=== PATIENT | female | born 1975 | race Caucasian/White ===

== ENCOUNTER 2021-04-22 06:47 | Emergency (ER) | payer MEDICAID, SELFPAY ==
[2021-04-22 06:49] VITALS: BP 155/87; BP 156/99; PULSE 105; PULSE 85; RESP 15; RESP 17; TEMP 37; O2SAT 96; O2SAT 97; BMI 36.8
[2021-04-22 06:53] VITALS: BP 156/99; PULSE 87; RESP 17; TEMP 37; O2SAT 95
--- NOTE | 2021-04-22 07:09 | RAD_ITS ---
STUDY: X-RAY CHEST REASON FOR EXAM: Female, 45 years old. cough TECHNIQUE: Single AP portable view of the chest. COMPARISON: None. FINDINGS: The lungs are clear and expanded. There is no demonstrated pleural abnormality. Normal size heart. Normal mediastinum and kenyatta. Normal visualized pulmonary arteries. Normal visualized aortic arch and descending thoracic aorta. Normal visualized thoracic spine. Normal visualized ribs, clavicles, and shoulders. There is no demonstrated abnormality of the visualized soft tissue structures of the upper abdomen. RAD/Chest 1 View IMPRESSION: Normal x-ray examination of the chest. Electronically Signed: Ld Ruiz MD at 7:43 EDT Tel , Service support ,
--- NOTE | 2021-04-22 07:09 | EX.ED.DYSGE1 ---
HPI History of Present Illness Chief Complaint: General Illness Detail of Chief Complaint: Cough and concern for pneumonia Informant: patient Narrative Narrative: Patient presents to the emergency department complaint of sinus congestion as well as cough that started 4 days ago. Patient was seen few days ago by her primary care physician and had a strep screen and Covid test that were negative. Patient started on Zithromax. Patient complaining of pain in her chest with coughing. She has had subjective fever at home. Patient states that her granddaughter recently had parainfluenza virus. Patient denies recent travel. She has no medical history otherwise. Patient states she is having hard time sleeping at night because of all the coughing and the pain in her chest with coughing. Patient is concerned she might have pneumonia. Prior similar symptoms: No Recent Illness/Hospitalization: No PFSH PFSH Home Medications Mucinex 04/22/21 [History Last Taken Unknown] albuterol sulfate 2 puff INHALATION 4X/DAY 04/22/21 [History Last Taken Unknown] azithromycin 04/22/21 [History Last Taken Unknown] benzonatate [Tessalon Perles] 100 mg PO BID PRN #14 cap 04/22/21 [Rx Last Taken Unknown] pseudoephedrine HCl [Sudafed] 30 mg Q12H PRN PRN 04/22/21 [History Last Taken Unknown] Allergy/AdvReac Type Severity Reaction Status Date / Time fluoxetine [From Prozac] Allergy Swelling Verified 04/22/21 06:57 omeprazole [From Prilosec] Allergy Swelling Verified 04/22/21 06:56 prednisone Allergy Itching Verified 04/22/21 06:56 acetaminophen [From Percocet] AdvReac Nausea Verified 04/22/21 06:56 oxycodone [From Percocet] AdvReac Nausea Verified 04/22/21 06:56 Social History Smoking Status: Never smoker ROS [facility] ED Constitutional Constitutional ED: Reports systems reviewed and no addt'l complaints, except as documented; Denies body ache(s), change in weight or chills Eyes Eyes: Denies acute decrease in peripheral vision, change in vision, double vision or loss of vision ENT ENT ED: Reports none, ear pain and sore throat; Denies lip swelling, loss taste/smell, neck pain or otalgia Cardiovascular Cardiovascular: Reports none; Denies abdominal pain, chest pain with activity, leg edema, lightheadedness, palpitations, rapid heart rate or syncope Respiratory/Chest Respiratory/Chest: Reports none, cough and sputum; Denies change in mental status, dry cough, dyspnea, hemoptysis, shortness of breath at rest or shortness of breath with exertion Gastrointestinal Gastrointestinal: Reports none; Denies abdominal pain, change in stool character, diarrhea, hematemesis, hematochezia, melena, rectal bleeding or vomiting Genitourinary Genitourinary ED: Reports none; Denies abdominal discomfort, anuria, dysuria, genital pain or polyuria Musculoskeletal Musculoskeletal: Reports none; Denies arthralgias, back pain, difficulty walking, extremity pain, muscle weakness or myalgias Integumentary Reports none; Denies abscess or rash Neurologic Neurologic: Reports none; Denies abnormal gait, confusion, focal weakness, frequent falls, headache(s), loss of vision, numbness, paresthesias, radicular pain, vertigo or weakness Psychiatric Psychiatric: Reports systems reviewed and no addt'l complaints, except as documented and none; Denies behavioral changes, confusion, difficulty concentrating, hallucinations, suicidal ideation, tactile hallucinations or visual hallucinations Endocrine Endocrinology: Denies none, cold intolerance, excessive sweating, fatigue or heat intolerance Hematologic/Lymphatic Hematologic/Lymphatic: Reports none; Denies anemia, easy bleeding or easy bruising Allergic/Immunologic Allergic/Immunologic ED: Denies as per HPI, none, lip swelling, mouth swelling, throat swelling, tongue swelling or hives EXAM Physical Exam Const Vital Signs: 04/22/21 06:49 04/22/21 06:53 04/22/21 07:02 Temperature 98.6 F 98.6 F Temperature Source Oral Oral Pulse Rate 85 87 Respiratory Rate 15 17 Respiratory Pattern Normal Blood Pressure 156/99 H 156/99 H Blood Pressure Mean 118 118 Pulse Ox 97 95 Oxygen Delivery Method Room Air Room Air Positive well nourished and well developed General Appearance ED: well developed and NAD HEENT Reports TM's clear and moist mucous membranes normocephalic and atraumatic; Negative for trauma or tenderness Tympanic Membrane ED: Yes TM's clear Eyes PERRL and EOMs intact bilaterally General Eye ED: Negative for pale conjunctiva or scleral icterus Neck no lymphadenopathy, supple and no JVD General: Negative for tenderness Chest Wall inspection of chest normal and palpation of chest normal Chest: Negative for tenderness Resp normal respiratory effort and clear to auscultation bilaterally Effort and Inspection: Negative for respiratory distress or pain with movement Auscultation: Negative for rhonchi, wheezes or diminished lung sounds Cardio regular rate, regular rhythm, S1 normal heart sound, S2 normal heart sound and no murmurs Peripheral Pulses: pulses 2+ throughout GI normal to inspection, nondistended, normoactive bowel sounds, soft to palpation, non-tender, non-distended and no masses Back/Spine no CVA tenderness and no thoracic nor lumbar tenderness Extremity normal to inspection General Extremety ED: Negative for edema General Extremity: Negative for edema Neuro oriented x3, CN's II-XII intact bilaterally, no sensory deficits noted and gait normal Sensorium / Orientation: awake, alert, oriented to person, oriented to place and oriented to time Motor Exam: strength 5/5 throughout and strength abnormal Psych mental status grossly normal Skin no rashes or lesions noted and no wounds MDM MDM MDM Narrative Medical decision making narrative: Patient had negative Covid exam 2 days ago. Chest x-ray was unremarkable today. Patient looks well and vital signs essentially unremarkable. Feel patient has an upper respiratory infection and she is to continue her Zithromax till she is to finish it. It is possible this could be a viral URI as well and we will treat her symptomatically with Tessalon Perles. Patient advised to push fluids. Patient advised to return if increasing shortness of breath or condition should worsen anyway. Radiography Chest X-Ray - ED: 1 View Diagnostic Testing: Radiology Impression Chest X-Ray 04/22/21 07:09 IMPRESSION: Normal x-ray examination of the chest. Electronically Signed: Ld Ruiz MD at 7:43 EDT Tel , Service support , 1 view chest x-ray obtained interpreted by myself as no acute disease process. Radiology was in agreement. Discharge Plan Triage Chief Complaint: General Illness ED Provider: Jovanny Fischer Dx/Rx/DC Orders Clinical Impression: Acute upper respiratory infection Instructions: ED Upper Resp Infec Abx Tx Prescriptions: New benzonatate [Tessalon Perles] 100 mg capsule 100 mg PO BID PRN (Reason: cough) Qty: 14 RF: 0 No Action azithromycin 250 mg tablet RF: 0 pseudoephedrine HCl [Sudafed] 30 mg Tablet 30 mg Q12H PRN PRN (Reason: Allergic Reaction) RF: 0 albuterol sulfate 90 mcg/actuation HFA aerosol inhaler 2 puff INHALATION 4X/DAY RF: 0 Mucinex RF: 0 Primary Care Provider: Jann Sparks Referrals: Jann Sparks MD [Primary Care Provider] - 3-5 Days Disposition Disposition: Home, Self Care
[2021-04-22 08:20] VITALS: BP 129/90
== END 2021-04-22 08:20 | disposition home or self-care (01) ==
PROVIDERS: Emergency Provider Emergency Medicine; PCP Family Medicine
DX: J06.9 Acute upper respiratory infection, unspecified (principal)
CPT/HCPCS: 71045; 99283; A4216

== ENCOUNTER 2024-05-17 21:00 | Emergency (ER) | payer SELFPAY ==
[2024-05-17 21:00] VITALS: BP 140/99; PULSE 81; RESP 16; TEMP 36.9; O2SAT 99
--- NOTE | 2024-05-17 21:20 | EKG12_ITS ---
Test Reason : CP Blood Pressure : / mmHG Vent. Rate : 095 BPM Atrial Rate : 095 BPM P-R Int : 154 ms QRS Dur : 084 ms QT Int : 378 ms P-R-T Axes : 045 047 039 degrees QTc Int : 475 ms Normal sinus rhythm Nonspecific ST and T wave abnormality Abnormal ECG Confirmed by Yosef Layne ([id number]), department editor CARLENE LEAHY ([id number]) on 05/19/2024 8:21:53 AM Referred By: MOIZ Confirmed By:Yosef Layne
--- NOTE | 2024-05-17 21:34 | RAD_ITS ---
STUDY: X-RAY CHEST REASON FOR EXAM: Female, 48 years old. CHEST PAIN TECHNIQUE: Single AP portable view of the chest. COMPARISON: 04/22/2021. FINDINGS: The lungs are clear and expanded. There is no demonstrated pleural abnormality. Normal size heart. Normal mediastinum and kenyatta. Normal visualized pulmonary arteries. Normal visualized aortic arch and descending thoracic aorta. Normal visualized thoracic spine. Normal visualized ribs, clavicles, and shoulders. There is no demonstrated abnormality of the visualized soft tissue structures of the upper abdomen. RAD/Chest 1 View (Portable) IMPRESSION: Normal x-ray examination of the chest. Electronically Signed: Alexis Pringle MD at 22:12 EDT ,
[2024-05-17 21:39] LABS: Absolute Lymphocyte Count 3.09 X10^3/uL (0.83-4.51); Absolute Neutrophil Count 5.9 X10^3/uL (2.0-7.7); Basophil# 0.03 X10^3/uL; Basophil% 0.3 % (0-1); Eosinophil# 0.18 X10^3/uL; Eosinophils% 1.8 % (0-5); Hematocrit 40.4 % (37-47); Hemoglobin 13.2 g/dL (12.0-15.0); Lymphocyte # 3.09 X10^3/ul (0.83-4.51); Lymphocyte % 31.6 % (19-41); Mean Corp Hgb Conc 32.7 g/dL (32-36); Mean Corpuscular Hgb 29.2 pg (27.0-32.0); Mean Corpuscular Volume 89.4 fL (81-99); Monocyte# 0.54 X10^3/uL; Monocyte% 5.5 % (0-10); NRBC Flagged by Analyzer 0 % (0-5); Neutrophil # 5.92 X10^3/uL (2.7-7.7); Neutrophil % 60.6 % (47-70); Platelet Count 306 K/mm3 (150-450); RBC Distribution Width CV 13.4 % (11.6-14.6); RBC Distribution Width SD 43.9 fl (35.1-43.9); Red Blood Count 4.52 M/mm3 (4.2-5.4); White Blood Count 9.8 K/mm3 (4.4-11.0)
[2024-05-17] MEDS: Morphine 4 MG/ML Syringe IV (22:08)
[2024-05-17] MEDS: Ondansetron 4 MG/2 ML Vial IV (22:08)
[2024-05-17 22:12] LABS: Anion Gap 8 (5-15); BUN 16 mg/dL (7-18); BUN/Creat Ratio 17.1 RATIO (10-20); Calcium,Total 8.8 mg/dL (8.5-10.1); Chloride 104 mmol/L (98-107); Creatinine, Serum 0.93 mg/dL (0.55-1.02); EST Glomerular Filtration Rate 69 mL/min (>60); Est Glom Filt Rate - Afr Amer 83 mL/min (>60); Glucose 140 mg/dL (74-106); Potassium 3.8 mmol/L (3.5-5.1); Sodium Level 141 mmol/L (136-145); Troponin-I HS (w/2H Reflex) 4 pg/mL (3.0-54.0)
[2024-05-17 22:20] VITALS: BP 122/88; PULSE 73; RESP 18; O2SAT 96
[2024-05-17 22:39] LABS: D-Dimer Quantitative (DVT/PE) 0.34 FEU/ug/m (0.27-0.49)
[2024-05-17 22:39] LABS: AST(SGOT) 226 U/L (15-37); Alanine Aminotransfer ALT/SGPT 148 U/L (13-56); Albumin, Serum 3.6 g/dL (3.2-5.0); Alkaline Phosphatase 78 U/L (45-117); Bilirubin, Direct 0.34 mg/dL (0.00-0.30); Globulin 4.2 g/dL (2.2-4.2); Lipase 47 U/L (13-75); Protein, Total 7.8 g/dL (6.4-8.2)
[2024-05-17 23:00] VITALS: BP 118/76; PULSE 71; RESP 13; O2SAT 95
--- NOTE | 2024-05-17 23:15 | CT_ITS ---
EXAM: CT ANGIOGRAPHY CHEST, ABDOMEN AND PELVIS WITH INTRAVENOUS CONTRAST CLINICAL INDICATION: chest/abd pain TECHNIQUE: Helically acquired angiography images were obtained of the chest, abdomen and pelvis with intravenous contrast. This CT exam was performed using one or more of the following dose reduction techniques: automated exposure control, adjustment of the mA and/or kV according to patient size, and/or use of iterative reconstruction technique. MIP reconstructed images were created and reviewed. CONTRAST: 100 cc of Isovue-370 IV. RADIATION DOSE: CTDIvol = 15.90 mGy, DLP = 1320.88 mGy-cm COMPARISON: No relevant prior studies available. FINDINGS: VASCULATURE: AORTA: No acute findings. Normal in caliber. No dissection. PULMONARY ARTERIES: Unremarkable. Normal in caliber. No obvious central pulmonary embolism although this study was not performed with the pulmonary embolism protocol. GREAT VESSELS OF AORTIC ARCH: Unremarkable. Normal in caliber. No dissection. CELIAC TRUNK AND MESENTERIC ARTERIES: No acute findings. No occlusion or significant stenosis. No dissection. RENAL ARTERIES: No acute findings. No occlusion or significant stenosis. No dissection. ILIAC ARTERIES: No acute findings. No occlusion or significant stenosis. No dissection. CHEST: LUNGS AND PLEURAL SPACES: Unremarkable. No mass. No consolidation or edema. No pleural effusion or thickening. No pneumothorax. HEART: Unremarkable. Heart size is normal. No pericardial effusion. MEDIASTINUM: Unremarkable. No mediastinal or hilar adenopathy. Esophagus is unremarkable. No hiatal hernia. THYROID: Unremarkable. No thyroid lesions. ABDOMEN: LIVER: Unremarkable. Homogeneous. No focal mass. GALLBLADDER AND BILE DUCTS: Unremarkable. No calcified gallstones. No gallbladder distention or wall edema. No intra- or extrahepatic biliary ductal dilation. PANCREAS: Unremarkable. No focal cystic or solid mass. SPLEEN: Unremarkable. Normal size without focal cystic or solid mass. ADRENALS: Unremarkable. No nodules. KIDNEYS AND URETERS: Unremarkable. Normal renal size and position. No hydronephrosis. STOMACH AND BOWEL: Scattered diverticula without diverticulitis. No stomach or bowel distention. PELVIS: APPENDIX: Normal appendix. BLADDER: Unremarkable. REPRODUCTIVE: Hysterectomy. CHEST, ABDOMEN and PELVIS: INTRAPERITONEAL SPACE: Unremarkable. No ascites or other fluid collection. No free air. BONES/JOINTS: Unremarkable. No suspicious lytic or blastic abnormality. SOFT TISSUES: Unremarkable. No discrete abdominal or pelvic wall hernia. LYMPH NODES: Unremarkable. No enlarged lymph nodes. CT/CTA Chst, Abd, Pel W and/or WO IMPRESSION: 1. No acute cardiopulmonary or abdominal pelvic abnormality. 2. Hysterectomy. 3. Scattered diverticula without diverticulitis. Electronically Signed: Yosef Patel MD at 0:17 EDT ,
[2024-05-17] MEDS: HYDROmorphone 0.5 MG/0.5 ML SYRINGE IV (23:26)
[2024-05-17 23:32] LABS: Reflex Troponin-HS? (from REC) Y
[2024-05-17] MEDS: 0.9% Normal Saline (1000mL) 1,000 ML 999 ML IV (23:43)
[2024-05-17] MEDS: DiphenhydrAMINE 50 MG/ML Syringe IV (23:56)
[2024-05-18] VITALS: BP 122/92; PULSE 70; RESP 12; O2SAT 98
[2024-05-18 00:11] LABS: Troponin-I HS 3 pg/mL (3.0-54.0)
--- NOTE | 2024-05-18 00:49 | EX.ED.DYSGE1 ---
HPI History of Present Illness Chief Complaint: Chest Pain Informant: patient, spouse/S.O. and family Narrative Narrative: Patient is a 48-year-old female who reports no significant past medical history. She states approximately 4 hours ago while at rest she noticed some lower mid chest discomfort/upper abdominal pain and states that she felt he radiated towards her back. She states that there was no trauma or excessive activity. She denies any recent surgery travel or history of DVT/PE. She states that she tried [id number] medications without any symptom improvement and with concern this pain could be cardiac in nature she presents for evaluation [facility] Home Medications ?Medication ?Instructions ?Recorded ?Last Taken ?Type Mucinex 04/22/21 Unknown History albuterol sulfate 90 mcg/actuation 2 puff inhalation 4X/DAY 04/22/21 Unknown History aerosol inhaler azithromycin 250 mg tablet 04/22/21 Unknown History benzonatate 100 mg capsule 100 mg PO BID PRN cough #14 caps 04/22/21 Unknown Rx (Jackie Mauricio) pseudoephedrine HCl 30 mg tablet 30 mg Q12H PRN PRN Allergic 04/22/21 Unknown History (Sudafed) Reaction hydrocodone-acetaminophen 5-325mg 1 tab PO Q6H PRN pain 3 days #12 05/18/24 Unknown Rx 5mg-325mg tabs ondansetron 4 mg disintegrating 4 mg PO TID PRN nausea and 05/18/24 Unknown Rx tablet vomiting #21 tabs Allergy/AdvReac Type Severity Reaction Status Date / Time Iodinated Contrast Media Allergy Intermediate Itching Verified 05/18/24 01:02 (CONTRASTS) fluoxetine (From Prozac) Allergy Swelling Verified 05/18/24 01:02 omeprazole (From Prilosec) Allergy Swelling Verified 05/18/24 01:02 prednisone Allergy Itching Verified 05/18/24 01:02 acetaminophen (From Percocet) AdvReac Nausea Verified 05/18/24 01:02 oxycodone (From Percocet) AdvReac Nausea Verified 05/18/24 01:02 Social History Smoking Status: Never smoker ROS [facility] ED Constitutional Constitutional ED: Denies chills or fever(s) Eyes Eyes: Denies blurry vision or change in vision ENT ENT ED: Denies sore throat Cardiovascular Cardiovascular: Reports chest pain; Denies palpitations or racing heartbeat Respiratory/Chest Respiratory/Chest: Denies cough or dyspnea Gastrointestinal Gastrointestinal: Reports abdominal pain and nausea; Denies diarrhea or vomiting Genitourinary Genitourinary ED: Denies dysuria, hematuria or urinary frequency Musculoskeletal Musculoskeletal: Reports back pain; Denies myalgias Integumentary Denies rash Neurologic Neurologic: Denies headache(s) Hematologic/Lymphatic Hematologic/Lymphatic: Denies easy bleeding or easy bruising EXAM Physical Exam Const Vital Signs: 05/17/24 21:00 05/17/24 21:33 05/17/24 21:33 Temperature 98.5 F Temperature Source Oral Pulse Rate 81 Respiratory Rate 16 Respiratory Effort Normal Non-Labored Blood Pressure 140/99 H Blood Pressure Mean 112 Pulse Ox 99 Oxygen Delivery Method Room Air Room Air Oxygen Flow Rate (L/min) 05/17/24 22:20 05/17/24 23:00 05/18/24 00:00 Temperature Temperature Source Pulse Rate 73 71 70 Respiratory Rate 18 13 12 Respiratory Effort Blood Pressure 122/88 H 118/76 122/92 H Blood Pressure Mean 99 90 102 Pulse Ox 96 95 98 Oxygen Delivery Method Room Air Room Air Room Air Oxygen Flow Rate (L/min) 2 05/18/24 01:00 Temperature 98.7 F Temperature Source Pulse Rate 80 Respiratory Rate 16 Respiratory Effort Blood Pressure 124/74 H Blood Pressure Mean 90 Pulse Ox 100 Oxygen Delivery Method Oxygen Flow Rate (L/min) Positive well nourished, well developed and obese General Appearance ED: well developed; Negative for pallor Nutritional Appearance: obese HEENT Reports moist mucous membranes HEENT Narrative: No tongue or lip swelling no oral lesions no airway edema or compromise No secondary findings in the posterior pharynx to suggest infection Eyes PERRL and EOMs intact bilaterally General Eye ED: Negative for scleral icterus Neck supple Neck Narrative: No nuchal rigidity or meningeal signs No crepitance palpated Chest Wall Chest Narrative: There is reproducible anterior chest wall pain with palpation However no bony deformity or crepitance noted Resp normal respiratory effort and clear to auscultation bilaterally Cardio regular rate and regular rhythm Rate: other Other Details: Heart is regular rate and rhythm without murmurs rubs or gallop Radial and carotid pulses are equal and symmetric GI non-distended and no masses GI Narrative: Abdomen is soft and nondistended with normal active bowel sounds. Patient has pain with palpation in the midepigastric and right upper quadrant region however is greatest in the midepigastric region. There is no voluntary guarding or rigidity. No pulsatile mass or fluid wave. No obvious hernia palpated. Negative Huerta sign Auscultation: normoactive bowel sounds Palpation: soft Back/Spine no CVA tenderness Extremity normal to inspection Extremity Narrative: No asymmetric edema no pitting edema negative Homans' sign bilaterally Neuro oriented x3, CN's II-XII intact bilaterally and no sensory deficits noted Sensorium / Orientation: alert Motor Exam: strength 5/5 throughout Psych mental status grossly normal Skin no rashes or lesions noted and no wounds General Skin Exam: Negative for jaundice or pallor MDM MDM MDM Narrative Medical decision making narrative: Patient arrived to the ER hypertensive but otherwise with stable vitals. She reported sudden onset of lower chest/upper abdominal pain over the past few hours that radiates towards her back and is not improving with [id number] medication. Differential diagnosis is for acute coronary syndrome versus cardiac dysrhythmia versus pulmonary embolus versus dissection versus biliary colic versus acute cholecystitis versus pancreatitis versus internal hernia. Patient is low risk for acute coronary syndrome and DVT/PE or dissection and so therefore I started with a chest x-ray as well as basic blood work. EKG was normal sinus rhythm and the initial and delta troponin were normal at values of 4 and 3 going against ACS. Patient's chest x-ray revealed no lung pathology such as pneumonia or pneumothorax. The patient's lipase was normal going against acute pancreatitis. There is slight elevation to her liver enzymes which could be secondary to CACERES or from potential biliary colic. Despite receiving morphine patient stated pain was still present and therefore even though D-dimer is negative as well as the initial troponin I did elect to perform a CTA of the chest abdomen pelvis to ensure there is no PE or dissection or pneumomediastinum or abdominal pathology. CTA was negative and on reevaluation patient has reported resolution of her pain. Therefore at this time as there is no signs of ACS or PE or dissection or lung pathology such as pneumonia pneumomediastinum or pneumothorax I do not feel there is need for further workup. Patient may have had a bout of biliary colic as her liver enzymes are slightly elevated but there are no findings of acute cholecystitis or gallstones on CT scan. Therefore should be given an outpatient order form for gallbladder ultrasound but is otherwise safe for discharge History & Record Review Discussion w/independent historian: Patient, Family and Significant other Lab Data Attestation: I reviewed the patient's lab results. Labs: Laboratory Results - last 24 hr 05/17/24 05/17/24 05/17/24 21:30 22:15 23:49 WBC 9.8 RBC 4.52 Hgb 13.2 Hct 40.4 MCV 89.4 MCH 29.2 MCHC 32.7 RDW Std Deviation 43.9 RDW Coeff of Dereje 13.4 Plt Count 306 MPV 10.0 Immature Gran % (Auto) 0.200 Neut % (Auto) 60.6 Lymph % (Auto) 31.6 [place] % (Auto) 5.5 Eos % (Auto) 1.8 Baso % (Auto) 0.3 Absolute Neuts (auto) 5.9 Absolute Lymphs (auto) 3.09 Nucleated RBC % 0 D-Dimer Quant (PE/DVT) 0.34 Sodium 141 Potassium 3.8 Chloride 104 Carbon Dioxide 29.0 Anion Gap 8 BUN 16 Creatinine 0.93 Est GFR (MDRD) Af Amer 83 Est GFR (MDRD) Non-Af 69 BUN/Creatinine Ratio 17.1 Glucose 140 H Calcium 8.8 Total Bilirubin 0.60 Direct Bilirubin 0.34 H AST 226 H ALT 148 H Alkaline Phosphatase 78 Troponin I High Sens 4 3 Total Protein 7.8 Albumin 3.6 Globulin 4.2 Lipase 47 Radiography Diagnostic Testing: Clinical Impression(s) from Imaging Studies Chest X-Ray 05/17/24 21:34 IMPRESSION: Normal x-ray examination of the chest. Electronically Signed: Alexis Pringle MD at 22:12 EDT , Chest/Abdomen/Pelvis CTA 05/17/24 23:15 IMPRESSION: 1. No acute cardiopulmonary or abdominal pelvic abnormality. 2. Hysterectomy. 3. Scattered diverticula without diverticulitis. Electronically Signed: Yosef Patel MD at 0:17 EDT , Chest x-ray as interpreted by the emergency medicine physician reveals no acute infiltrate pneumothorax or pleural effusion Discharge Plan Triage Chief Complaint: Chest Pain ED Provider: Magdaleno Willis Dx/Rx/DC Orders Clinical Impression: Nonspecific chest pain, Hypertension, Nonspecific abdominal pain Instructions: ED Abdominal Pain Gallstone Poss, ED Chest Pain, Uncertain Cause Prescriptions: New hydrocodone-acetaminophen 5-325 mg tablet 1 tab PO Q6H PRN (Reason: pain) 3 Days Qty: 12 0RF ondansetron 4 mg tablet,disintegrating 4 mg PO TID PRN (Reason: nausea and vomiting) Qty: 21 0RF No Action azithromycin 250 mg tablet pseudoephedrine HCl [Sudafed] 30 mg Tablet 30 mg Q12H PRN PRN (Reason: Allergic Reaction) albuterol sulfate 90 mcg/actuation HFA aerosol inhaler 2 puff INHALATION 4X/DAY Patient Comments: inhale 2 puffs by mouth and INTO THE LUNGS every 4 hours if neede... (REFER TO PRESCRIPTION NOTES). Mucinex benzonatate [Tessalon Perles] 100 mg capsule 100 mg PO BID PRN (Reason: cough) Qty: 14 0RF Stand Alone Forms: Work / School Excuse Other Ambulatory Orders: Gallbladder (Routine) Facility: [facility] - Location: [facility] Ordered By: Dr. Magdaleno Willis Primary Care Provider: Jann Sparks Referrals: Jann Sparks MD [Primary Care Provider] - Activity Restrictions/Additional Instructions: Your workup today revealed no sign of cardiac event pulmonary embolus/blood clot or dissection. There is a possibility that this is gallbladder related. Therefore obtain your outpatient gallbladder ultrasound which may show findings that are not present on CT scan and return to the ER should you have any further concerns Print Language: Thai Disposition Disposition: Home, Self Care Discharge Date/Time: 05/18/24 01:00
[2024-05-18 01:00] VITALS: BP 124/74; PULSE 80; RESP 16; TEMP 37.1; O2SAT 100
== END 2024-05-18 01:00 | disposition home or self-care (01) ==
PROVIDERS: Emergency Provider Emergency Medicine; PCP Family Medicine; Visit Provider Emergency Medicine
DX: R07.9 Chest pain, unspecified (principal); R10.11 Right upper quadrant pain; R10.13 Epigastric pain; I10 Essential (primary) hypertension
CPT/HCPCS: 71045; 71275; 74174; 80048; 80076; 83690; 84484; 85025; 85379; 93005; 96361; 96374; 96375; 99284; J7030; Q9967; A4216; J2405